=== PATIENT | female | born 1995 | race American Indian/Alaskan Native ===

== ENCOUNTER 2018-12-30 19:35 | Emergency (ER) | payer MEDICAID ==
[2018-12-30 19:36] VITALS: BMI 25.5
[2018-12-30 20:20] VITALS: RESP 16
[2018-12-30] MEDS ORDERED: Sodium Chloride 0.9% 1,000 ML IV ONE (20:42)
[2018-12-30] MEDS ORDERED: Sodium Chloride 0.9% 1,000 ML ONE (21:01)
[2018-12-30 21:03] LABS: BASO % 0.5 % (0.0-2.0); EOS # 0.2 K/uL (0.0-0.7); HEMOGLOBIN 10.8 g/dL (11.0-16.0); LYMPH # 2.1 K/uL (1.0-4.3); LYMPH % 25.3 % (20.0-40.0); MEAN CELL VOLUME 76.1 fL (81.0-99.0); MEAN CORPUSCULAR HEMOGLOBIN 23.8 pg (27.0-31.0); MEAN CORPUSCULAR HGB CONC 31.2 g/dL (33.0-37.0); MEAN PLATELET VOLUME 8.1 fL (7.2-11.7); MONO # 0.5 K/uL (0.0-0.8); MONO % 6.4 % (0.0-10.0); NEUT # 5.4 K/uL (1.8-7.0); NEUT % 64.8 % (50.0-75.0); NRBC % 0.1 % (0.0-2.0); RBC 4.57 Mil/uL (3.80-5.20); WHITE BLOOD COUNT 8.3 K/uL (4.8-10.8)
[2018-12-30 21:26] LABS: ALB/GLOB RATIO 1.2 (1.0-2.1); ALBUMIN 3.7 g/dL (3.5-5.0); ALT/SGPT 18 U/L (9-52); AST/SGOT 24 U/L (14-36); BLOOD UREA NITROGEN 8 mg/dL (7-17); GFR NON-AFRICAN AMERICAN > 60
[2018-12-30 21:27] LABS: SQUAMOUS EPITHIAL 5 /hpf (0-5); URINE BACTERIA OCC (<OCC); URINE BILIRUBIN NEGATIVE (NEGATIVE); URINE BLOOD NEGATIVE (NEGATIVE); URINE CLARITY Hazy (Clear); URINE COLOR Yellow (YELLOW); URINE GLUCOSE (UA) NORMAL (Normal); URINE LEUKOCYTE ESTERASE 1+ Leu/uL (Negative); URINE PROTEIN NEGATIVE (NEGATIVE)
[2018-12-30 21:29] LABS: HCG,QUALITATIVE URINE POSITIVE (NEGATIVE)
--- NOTE | 2018-12-30 21:33 | C.PDOC ---
History Of Present Illness 23 year old female presents to ED with complaint of headache and dizziness that began earlier today. Patient is 13 weeks by dates and has had no prior US. Patient is unsure if she want to keep the . , P:2, A:1. Patient states that she has not taken anything for the headache because she is unsure if she can take anything. Patient also complains of nasal congestion. Patient denies abdominal pain, vaginal discharge, and vaginal bleeding. Time Seen by Provider: 12/30/18 20:33 Chief Complaint (Nursing): Dizziness/Lightheaded History Per: Patient History/Exam Limitations: no limitations Onset/Duration Of Symptoms: Hrs Current Symptoms Are (Timing): Still Present Past Medical History Reviewed: Historical Data, Nursing Documentation, Vital Signs Vital Signs: Last Vital Signs Temp 98.4 F 12/30/18 20:14 Pulse 107 H 12/30/18 20:14 Resp 16 12/30/18 20:14 BP 143/84 12/30/18 20:14 Pulse Ox 100 12/30/18 20:14 - Medical History PMH: No Chronic Diseases Surgical History: No Surg Hx Family History: States: Unknown Family Hx - Social History Hx Alcohol Use: No Hx Substance Use: No Review Of Systems Constitutional: Negative for: Fever, Chills, Weakness ENT: Positive for: Nose Congestion Gastrointestinal: Negative for: Abdominal Pain Genitourinary: Negative for: Vaginal Discharge, Vaginal Bleeding Neurological: Positive for: Headache, Dizziness. Negative for: Weakness, Numbness Physical Exam - Physical Exam Appears: Well, Non-toxic, No Acute Distress Skin: Normal Color, Warm, Dry Head: Atraumatic, Normacephalic Neck: Normal ROM, Supple Chest: Symmetrical, No Deformity Cardiovascular: Rhythm Regular, No Murmur Respiratory: No Accessory Muscle Use, No Rales, No Rhonchi, No Wheezing Gastrointestinal/Abdominal: No Tenderness, Other (gravid abdomen senior care to the umbilicus) Extremity: Capillary Refill (<2 seconds) Neurological/Psych: Oriented x3, Normal Speech, Normal Cognition ED Course And Treatment - Laboratory Results Result Diagrams: 12/30/18 20:57 12/30/18 20:57 Lab Results: Total Bilirubin 0.3 mg/dL (0.2-1.3) 12/30/18 20:57 AST 24 U/L (14-36) 12/30/18 20:57 ALT 18 U/L (9-52) 12/30/18 20:57 Alkaline Phosphatase 129 U/L (38-126) H 12/30/18 20:57 Total Protein 6.8 g/dL (6.3-8.3) 12/30/18 20:57 Albumin 3.7 g/dL (3.5-5.0) 12/30/18 20:57 Globulin 3.1 gm/dL (2.2-3.9) 12/30/18 20:57 Albumin/Globulin Ratio 1.2 (1.0-2.1) 12/30/18 20:57 Lab Interpretation: Normal (O+, QHCG 122,600 H) Urine POC: Positive O2 Sat by Pulse Oximetry: 100 (in RA) Pulse Ox Interpretation: Normal Progress Note: Transvaginal US ordered for patient. Labs with type and screen, B-HCG, and UA ordered for patient. Patient given IV fluids and Tylenol PO. Reevaluation Time: 23:32 Reassessment Condition: Unchanged Medical Decision Making Medical Decision Making: sinus headaches due to nasal passage inflammation tylenol/flonase normal appearing IUP @ 11W5D O+ Disposition Doctor Will See Patient In The: Office Counseled Patient/Family Regarding: Studies Performed, Diagnosis - Disposition Disposition: HOME/ ROUTINE Disposition Time: 23:33 Condition: GOOD Forms: [facility] (Mongolian) - Clinical Impression Clinical Impression: Dizziness, Headache, - Scribe Statement The provider has reviewed the documentation as recorded by the Scribe (Ramona Rivera) All medical record entries made by the Scribe were at my direction and personally dictated by me. I have reviewed the chart and agree that the record accurately reflects my personal performance of the history, physical exam, medical decision making, and the department course for this patient. I have also personally directed, reviewed, and agree with the discharge instructions and disposition.
[2018-12-30 22:40] VITALS: BP 124/74; PULSE 99; TEMP 97.7
[2018-12-30 23:33] VITALS: O2SAT 100
--- NOTE | 2018-12-31 10:37 | US ---
Date of service: 12/30/2018 PROCEDURE: OB Pelvic Ultrasound HISTORY: 13 weeks, no prior, dizzy LMP: 10/01/2018 COMPARISON: None available. FINDINGS: UTERUS: Gestational sac: Single intrauterine gestation. Heart rate: 137 bpm. age (Ultrasound estimated): Sandi-gestational hemorrhage: None. Date of delivery (Ultrasound estimated) : 07/16/2019 Uterus measures 6.8 x 3.7 x 5 cm. Normal in size and appearance. This suspicious for left uterine wall fibroid. CERVIX: Measures 2.7 cm. Long and closed. No cervical abnormality seen. RIGHT OVARY: Measures 2.8 x 1.9 x 2.5 cm. No mass lesion. Normal flow. Small cyst seen at the right ovary measures 1.5 x 1 x 1.5 LEFT OVARY: Measures 3.1 x 2 x 2 cm. No solid mass. Normal flow. FREE FLUID: None. OTHER FINDINGS: None. IMPRESSION: Single intrauterine live with ultrasound estimated gestational age of 11 weeks 5 days +/-0 weeks 6 days. Estimated date of delivery by ultrasound is 07/16/2019. Suspicious for left uterine wall fibroid. If clinically warranted follow-up ultrasound may be obtained.
== END 2018-12-30 23:42 | disposition home or self-care (01) ==
LOC: C.ER 19:35
DX: O26.891 Other specified pregnancy related conditions, first trimester (principal); R51 Headache; R42 Dizziness and giddiness; Z3A.13 13 weeks gestation of pregnancy
CPT/HCPCS: 76801; 80053; 81001; 81025; 84702; 84703; 85025; 86850; 86900; 87086; 99285; J7030